=== PATIENT | female | born 1955 | race African-American/Black ===

== ENCOUNTER 2019-06-22 21:10 | Inpatient (IN) ==
[2019-06-22] MEDS ORDERED: DUONEB (A & A) INH ONE (21:35)
[2019-06-22 21:59] LABS: BASO# 0.04 X1000 (0.0-0.2); BASO% 0.7 % (0.0-0.8); HEMOGLOBIN 12.6 g/dL (12.0-16.0); LYMPH# 2.79 X1000 (1.2-3.4); LYMPH% 48.8 % (20.5-51.1); MCH 28.7 PG (27-31); MCHC 32.3 g/dL (33-37); MCV 88.8 FL (81-99); MONO# 0.29 X1000 (0.11-0.59); MONO% 5.1 % (1.7-9.3); MPV 11.2 FL (7.4-10.4); NEUT% 45.4 % (42.2-75.2); PLT 209 X1000 (130-400); RBC 4.39 XMIL (4.2-5.4); WBC 5.72 X1000 (4.8-10.8)
[2019-06-22 21:59] LABS: BE 1.5 mmoll (-3.0-3.0); BLOOD TYPE ARTERIAL; HCO3-(ACT) 25.8 mmoll (20.0-26.0); METHB 1.4 % (0.0-1.5); O2(CT) 17.6 mL/dL (15.0-23.0); PCO2(98.6) 34 mmHg (35-45); PO2(98.6) 51 mmHg (60-100); SAMPLE BLOOD; THB 14.3 g/dL (11.5-17.4); pH(98.6) 7.47 (7.35-7.45)
[2019-06-22 22:05] LABS: INR 0.97; PROTIME 13.4 Seconds (11.0-16.0)
[2019-06-22 22:09] LABS: AGAP 14; ALBUMIN 3.8 g/dL (3.5-5.0); ALKALINE PHOSPHATASE 85 U/L (32-104); BUN 9 mg/dL (8-22); CALCIUM 8.7 mg/dL (8.8-10.2); CHLORIDE 104 mmol/L (98-107); COSMO 277; CREATININE 0.7 mg/dL (0.5-0.9); ESTIMATED GFR > 60; GLUCOSE 114 mg/dL (70-104); GOT 33 U/L (10-30); GPT 20 U/L (10-36); POTASSIUM 3.2 mmol/L (3.5-5.1); SODIUM 139 mmol/L (136-145); TCO2 21 mmol/L (25-35); TOTAL PROTEIN 7.5 g/dL (6.3-8.3)
[2019-06-22 22:15] LABS: ALLEN TEST YES; MODALITY ROOM AIR; O2HB 87.5 % (95.0-99.0)
[2019-06-22] MEDS ORDERED: NORCO-5 PO ONE (22:29)
[2019-06-22] MEDS ORDERED: KLOR-CON PO ONE (23:15)
--- NOTE | 2019-06-22 23:18 | EKG Report ---
Test Performed on : 06/22/2019 9:28:29 PM Test Reason : sob Blood Pressure : / mmHG Vent. Rate : 096 BPM Atrial Rate : 096 BPM P-R Int : 152 ms QRS Dur : 092 ms QT Int : 402 ms P-R-T Axes : 062 084 048 degrees QTc Int : 507 ms Normal sinus rhythm. Nonspecific ST abnormality Abnormal ECG When compared with ECG of 08-DEC-2017 15:57, QT has lengthened Unconfirmed Result
[2019-06-22 23:21] LABS: INFLUENZA A NEGATIVE (NEGATIVE); INFLUENZA B NEGATIVE (NEGATIVE)
[2019-06-22] MEDS ORDERED: ROCEPHIN 1 GM in NS 50 ML IV ONE (23:35)
[2019-06-23 00:04] LABS: URINE SOURCE CLEAN CATCH
[2019-06-23] MEDS ORDERED: ZOFRAN IV PRN (00:05)
[2019-06-23 00:08] LABS: BILIRUBIN URINE NEGATIVE (NEGATIVE); BLOOD URINE NEGATIVE (NEGATIVE); COLOR YELLOW; GLUCOSE URINE NEGATIVE (NEGATIVE); KETONE URINE NEGATIVE (NEGATIVE); LEUKOCYTES URINE NEGATIVE (NEGATIVE); NITRITE URINE NEGATIVE (NEGATIVE); PH URINE 5.5; PROTEIN URINE TRACE mg/dL (NEGATIVE); SP GRAVITY URINE 1.013; TURBIDITY URINE CLEAR (CLEAR); UROBILINOGEN URINE NORMAL (NORMAL)
[2019-06-23 00:10] LABS: UR EPITHELIAL CELLS <10 /HPF (<10); URINE BACTERIA NEGATIVE /HPF; URINE RBC <10 /HPF (<10); URINE WBC <10 /HPF (<10)
[2019-06-23] MEDS: NS 1,000 ML IV ONE ×2 (02:34→03:37)
[2019-06-23] MEDS: TYLENOL PO PRN ×3 (03:52→22:14)
[2019-06-23] MEDS: DUONEB (A & A) INH SCH ×6 (04:10→23:31)
--- NOTE | 2019-06-23 07:32 | Diag Imaging Result Doc PS360 ---
EXAM: CHEST-PORTABLE - 06/22/2019 HISTORY: SOB TECHNIQUE: Portable chest COMPARISON: 06/20/2019 FINDINGS: Heart size is normal. There is mild prominence of infrahilar markings on the right. There is artifact from EKG leads over the right midlung. The left lung appears clear. No pleural effusion or pneumothorax identified. IMPRESSION: Mild prominence of right infrahilar markings. Electronically signed by Cas Mack 06/23/2019 7:29 AM
--- NOTE | 2019-06-23 08:18 | Diag Imaging Result Doc PS360 ---
CT THORAX W/CONTRAST - 06/23/2019 INDICATION: Midlung Density rec f/u per xray COMPARISON: Previous chest x-rays FINDINGS: There is no adenopathy. Heart and great vessels are normal. Small gallstone in the gallbladder. No gallbladder distention or inflammation. Upper abdominal images are normal. There is some trace multifocal infiltrate throughout all lobes of the right lung concerning for early bronchopneumonia. No pneumothorax or pleural effusion. There are moderate degenerative changes of the spine. No acute or suspicious bony lesion. IMPRESSION: Multilobar bronchopneumonia in the right lung. This exam was performed using automated exposure control, adjustment of mA or kV according to patient size, and/or use of iterative reconstruction technique Electronically signed by Chase Montero 06/23/2019 8:15 AM
[2019-06-23] MEDS: ROBITUSSIN-AC PO PRN ×2 (12:28→20:37)
--- NOTE | 2019-06-23 14:24 | HISTORY AND PHYSICAL ---
PRIMARY CARE PHYSICIAN: Dr. Robe Roland. CHIEF COMPLAINT: Shortness of breath and wheezing. HISTORY OF PRESENT ILLNESS: This is a 64-year-old female with a history of hypertension, who presented to the emergency room complaining of about 5 to 6 days of shortness of breath with a productive cough and increased work of breathing. She was found to have multilobar bronchopneumonia on the right. Blood cultures were obtained. She was given Rocephin in the emergency room, and she is being admitted for further evaluation and treatment. PAST MEDICAL HISTORY: Hypertension. PAST SURGICAL HISTORY: Total knee replacement on the left. SOCIAL HISTORY: She smokes a pack a day. She has occasional alcohol use. Denies any illicit drug use. ALLERGIES: Aspirin and Naprosyn that cause nausea and vomiting. HOME MEDICATIONS: ProAir inhaler, Prinivil, simvastatin. REVIEW OF SYSTEMS: Discussed with the patient, with pertinent positives stated in the HPI. She denied any syncope or dizziness, any chest pain, palpitations, fevers or chills, any night sweats, recent weight loss or weight gain, any nausea, vomiting, diarrhea, constipation, black or bloody vomitus or stools, any hematuria, dysuria, frequency, urgency. PHYSICAL EXAMINATION: GENERAL: This is a 64-year-old female who is sitting in the bed in no distress. VITAL SIGNS: Blood pressure is 118/71, with a heart rate of 86, respirations are 16, temperature is 98.7 degrees, with O2 saturations that are 92% to 96% on 2 L nasal cannula. EYES: Pupils are equal, round, reactive to light. EOMs are intact. Sclerae anicteric. HENT: Head is normocephalic, atraumatic. Mucous membranes are moist. NECK: Supple with trachea midline. CARDIOVASCULAR: Regular rate and rhythm. S1 and S2 are appreciated. She has no lower extremity edema. Calves are nontender bilaterally, with peripheral pulses palpable x4 extremities. No murmur is noted. PULMONARY: Breath sounds with expiratory wheezes scattered throughout. Chest rises and falls symmetric with respiration. Chest wall is nontender to palpation. GASTROINTESTINAL: Abdomen is soft, nontender, nondistended with bowel sounds in all 4 quadrants. GENITOURINARY: No CVA or suprapubic tenderness. NEUROLOGIC: She is alert and oriented x3. SKIN: Warm and dry. IMAGING AND LABORATORY DATA: WBC is 5.7, with hemoglobin 12.6, hematocrit 39, platelets of 209,000. INR 0.97. Sodium is 139, potassium 3.2, BUN 9, creatinine 0.7, with a glucose of 114. Lactate is 1.7. Urinalysis is essentially negative. Influenza A and B are negative. ABGs show pH of 7.47, with pCO2 of 34, PO2 of 51, and bicarb of 25.8. This is on room air. Chest x-ray reveals mild prominence of right infrahilar markings. CT of the chest with contrast revealed multilobar bronchopneumonia in the right lung. EKG: Sinus rhythm at a rate of 96. ASSESSMENT: 1. Right bronchopneumonia. 2. Hypertension. 3. Hypokalemia. 4. Acute hypoxemic respiratory failure. PLAN: The patient has been admitted to the medical/surgical floor. She is receiving supplemental oxygen. Will continue per oxygen protocol. Continue bronchodilators, and will add steroids with incentive spirometer every 4 hours, with order for the patient to be up in the chair at least 3 times a day with meals and p.r.n. Will identify her home medications, and continue these as appropriate. For DVT prophylaxis, will use Lovenox, and GI prophylaxis with Prilosec. Repeat a CBC, CMP, and magnesium in the morning. Plan was discussed with Dr. Charles. Further treatments pending hospital course. Dictated by KAYLA Cook for Jacques Charles MD cc: KAYLA Cook MD
[2019-06-23] MEDS: ZITHROMAX PO SCH (14:53)
[2019-06-23] MEDS: LOVENOX SUBQ SCH (14:53)
[2019-06-23] MEDS: SOLU-MEDROL IV SCH ×2 (14:54→22:09)
--- NOTE | 2019-06-23 20:00 | HISTORY AND PHYSICAL ---
ADDENDUM: Patient seen and examined by myself. Full note dictated and discussed with nurse practitioner. Patient presented to the hospital with a 6-day history of chest pain, shortness of breath. He has a chronic history of smoking a pack a day. We are going to admit to the hospital, place on Rocephin, nebulized treatments, oxygen and will follow. cc: Jacques Charles MD
--- NOTE | 2019-06-23 20:19 | HISTORY AND PHYSICAL ---
ADDENDUM: Patient seen and examined by myself. Full note dictated and discussed with nurse practitioner. Patient presented to the hospital with increased cough, congestion, shortness of breath, increased work of breathing. She was diagnosed with right bronchial pneumonia. We are going to admit her to the hospital. IV antibiotics, oxygen, breathing treatments, and will follow. cc: Jacques Charles MD
[2019-06-23] MEDS: ZOCOR PO SCH (20:27)
[2019-06-23] MEDS: ROCEPHIN 1 GM in NS 50 ML IV SCH (22:09)
[2019-06-24] MEDS: DUONEB (A & A) INH SCH ×7 (04:37→23:00)
[2019-06-24] MEDS: SOLU-MEDROL IV SCH ×3 (06:04→21:38)
[2019-06-24 06:47] LABS: HEMATOCRIT 39.4 % (37.0-47.0); HEMOGLOBIN 12.4 g/dL (12.0-16.0); MCH 28.1 PG (27-31); MCHC 31.5 g/dL (33-37); MCV 89.3 FL (81-99); MPV 11.9 FL (7.4-10.4); RBC 4.41 XMIL (4.2-5.4); RDW 15.3 % (11.5-14.5); WBC 4.42 X1000 (4.8-10.8)
[2019-06-24 07:43] LABS: AGAP 18; ALBUMIN 3.7 g/dL (3.5-5.0); ALKALINE PHOSPHATASE 83 U/L (32-104); BUN 9 mg/dL (8-22); CALCIUM 9.3 mg/dL (8.8-10.2); CHLORIDE 104 mmol/L (98-107); COSMO 287; CREATININE 0.6 mg/dL (0.5-0.9); ESTIMATED GFR > 60; GLUCOSE 187 mg/dL (70-104); GOT 23 U/L (10-30); GPT 17 U/L (10-36); POTASSIUM 3.6 mmol/L (3.5-5.1); SODIUM 142 mmol/L (136-145); TCO2 19 mmol/L (25-35); TOTAL PROTEIN 8.2 g/dL (6.3-8.3)
[2019-06-24] MEDS: ZITHROMAX PO SCH (08:20)
[2019-06-24] MEDS: PRINIVIL PO SCH (08:21)
[2019-06-24] MEDS: ROBITUSSIN-AC PO PRN ×3 (08:31→21:46)
--- NOTE | 2019-06-24 10:33 | PROGRESS NOTE ---
DATE: 06/24/2019 SUBJECTIVE: Patient's daughter notes that she is feeling a little bit better. She is breathing better. Patient actually was able to get up and get in the shower today. PHYSICAL EXAMINATION: Vital Signs: Temperature 97.7, pulse 95, respiratory rate 18, BP 142/69. General: Patient is awake, pleasant. She is in minimal respiratory distress. HEENT: Normocephalic. Neck: Supple. Cardiovascular: Regular rate. Chest: Decreased but equal. Positive rhonchi. No current wheezing. Abdomen: Soft, nondistended. Extremities: Moves all extremities. ASSESSMENT: 1. Right bronchopneumonia. 2. Hypertension. 3. Hypokalemia. 4. Acute respiratory hypoxic failure. PLAN: We are going to continue the patient in the hospital. Continue antibiotics, breathing treatments. We will attempt to wean steroids and oxygen, hopefully home over the next few days. cc: Jacques Charles MD
[2019-06-24] MEDS: LOVENOX SUBQ SCH (14:17)
[2019-06-24] MEDS: TYLENOL PO PRN ×2 (14:43→20:24)
[2019-06-24] MEDS: ZOCOR PO SCH (20:24)
[2019-06-24] MEDS: ROCEPHIN 1 GM in NS 50 ML IV SCH (22:11)
[2019-06-25] MEDS: ROBITUSSIN-AC PO PRN ×2 (02:01→20:35)
[2019-06-25] MEDS: DUONEB (A & A) INH SCH ×6 (03:13→23:38)
[2019-06-25] MEDS: TYLENOL PO PRN (03:18)
[2019-06-25] MEDS: SOLU-MEDROL IV SCH ×4 (06:06→21:36)
[2019-06-25] MEDS: ZITHROMAX PO SCH (09:15)
[2019-06-25] MEDS: PRINIVIL PO SCH (09:15)
[2019-06-25] MEDS: NORCO-5 PO PRN ×3 (10:24→20:35)
[2019-06-25] MEDS ORDERED: SOLU-MEDROL IV SCH (14:00)
[2019-06-25] MEDS: LOVENOX SUBQ SCH (16:12)
[2019-06-25] MEDS: ZOCOR PO SCH (20:35)
[2019-06-25] MEDS: NICODERM PATCH TD PRN (20:36)
[2019-06-25] MEDS: ROCEPHIN 1 GM in NS 50 ML IV SCH (22:28)
[2019-06-25] MEDS ORDERED: PERICOLACE PO ONE (22:33)
--- NOTE | 2019-06-26 00:25 | PROGRESS NOTE ---
DATE: 06/25/2019 SUBJECTIVE: Patient notes that she is feeling a lot better. She is still having some cough, congestion, but overall symptoms have improved. PHYSICAL EXAMINATION: Vital Signs: Temperature 98 degrees, pulse 92, respiratory rate 18, BP 129/67. General: Patient is pleasant. She is in minimal respiratory distress lying in the bed. HEENT: Normocephalic. Neck: Supple. Cardiovascular: Regular rate. Chest: Clear. Abdomen: Soft. Extremities: Moves all extremities. ASSESSMENT: 1. Right bronchopneumonia. 2. Acute hypoxic respiratory failure with wheezing. 3. Hypertension. 4. Hypokalemia. PLAN: Overall, patient has improved. We will continue breathing treatments, oxygen, wean her steroids, continue antibiotics. Hopefully home in 1 [*] cc: Jacques Charles MD
[2019-06-26] MEDS: DUONEB (A & A) INH SCH ×6 (03:34→23:09)
[2019-06-26] MEDS: PRINIVIL PO SCH (10:20)
[2019-06-26] MEDS: PERICOLACE PO SCH (10:20)
[2019-06-26] MEDS: SOLU-MEDROL IV SCH (10:20)
[2019-06-26] MEDS: ZITHROMAX PO SCH (10:20)
[2019-06-26] MEDS: NORCO-5 PO PRN ×2 (10:20→17:12)
[2019-06-26] MEDS: LACTULOSE PO SCH ×2 (12:34→20:29)
[2019-06-26] MEDS: TYLENOL PO PRN ×2 (13:02→19:46)
--- NOTE | 2019-06-26 14:07 | Diag Imaging Result Doc PS360 ---
EXAM: CHEST-2 VIEWS 06/26/2019 HISTORY: hypoxia TECHNIQUE: PA and lateral chest COMMENT: There is minimal opacity in the inferolateral right upper lobe which was not clearly present on 06/22/2019. Otherwise are has been no appreciable change. IMPRESSION: Minimal right upper lobe pneumonia. Electronically signed by Travis Spaulding 06/26/2019 2:05 PM
[2019-06-26] MEDS: NICODERM PATCH TD PRN (19:46)
[2019-06-26] MEDS: DOXYCYCLINE PO SCH ×2 (19:46→20:29)
[2019-06-26] MEDS: ZOCOR PO SCH ×2 (19:46→20:29)
--- NOTE | 2019-06-26 20:37 | PROGRESS NOTE ---
DATE: 06/26/2019 SUBJECTIVE: Patient is very worried about her oxygen levels. She is concerned that it drops from 98% to 93% when she attempts to get up and walk. She has frequently been increasing her oxygen on her own. She is very concerned about going home. She lives at home alone. PHYSICAL EXAMINATION: Vital Signs: Temperature 97.4 degrees, pulse 94, respiratory 20, BP 156/89. General: Patient is awake. She is in no respiratory distress. HEENT: Normocephalic. Neck: Supple. Cardiovascular: Regular rate. Chest: Decreased but equal. Abdomen: Soft, nondistended. Extremities: Moves all extremities. ASSESSMENT: 1. Right bronchopneumonia. Her chest x-ray may be a little bit worse. 2. Hypertension. 3. Hypoxic respiratory failure. At this point, I do not believe that she still needs oxygen, although it is quite difficult as she is frequently elevating her oxygen levels on her own. Also, when we attempt to check her oxygen level, she does appear to be breath-holding as she feels as though she needs oxygen at home. PLAN: We will continue in the hospital. Continue Solu-Medrol and antibiotics. We will stop her azithromycin, change to doxycycline. Hopefully home over the next 1 or 2 days. cc: Jacques Charles MD
[2019-06-26] MEDS: ROCEPHIN 1 GM in NS 50 ML IV SCH (23:00)
[2019-06-27] MEDS: NORCO-5 PO PRN (02:59)
[2019-06-27] MEDS: DUONEB (A & A) INH SCH ×2 (03:07→07:43)
[2019-06-27 05:15] VITALS: BP 176/97
[2019-06-27] MEDS ORDERED: PRINIVIL PO SCH (09:00)
[2019-06-27] MEDS: TYLENOL PO PRN (09:29)
[2019-06-27] MEDS: DOXYCYCLINE PO SCH (09:30)
[2019-06-27] MEDS: SOLU-MEDROL IV SCH (10:45)
[2019-06-27] MEDS: PERICOLACE PO SCH (10:45)
[2019-06-27] MEDS: LACTULOSE PO SCH (10:45)
--- NOTE | 2019-06-28 09:12 | DISCHARGE SUMMARY ---
ADMISSION DATE: 06/23/2019 DISCHARGE DATE: 06/27/2019 ADMISSION DIAGNOSES: 1. Right bronchopneumonia. 2. Hypertension. 3. Hypokalemia. 4. Acute hypoxemic respiratory failure. DISCHARGE DIAGNOSES: 1. Right bronchopneumonia. 2. Hypertension. 3. Hypoxemic respiratory failure. CONSULTATIONS: None. SURGERIES AND PROCEDURES: None. HOSPITAL COURSE: Ms. Suzanne Velazco is a 64-year-old female with a history of hypertension who presented to [facility] I believe on the , admitted on the . Had 5 or 6 days with complaints of shortness of breath, increased productive cough, with work of breathing. Imaging showed right bronchopneumonia. She was started on Rocephin and she required oxygen. She started on steroids as well. Pulmonary toilet, incentive spirometer. Her potassium was a little low. That was replaced. Her hypertension remained stable and was deemed appropriate for discharge home today. DISCHARGE VITAL SIGNS: Temperature 97.7 degrees, heart rate 103, respiratory rate 20, blood pressure 176/97, O2 saturation 98% and 95% on room air. DISCHARGE LAB DATA: White blood cells 4000, hemoglobin 12, hematocrit 39, platelet count 223,000. Sodium 142, potassium 3.6, BUN 9, creatinine 0.6, glucose 187, calcium 9.3, magnesium 2.0. Bilirubin 0.20, AST 23, ALT 17, albumin 3.7, lactate 1.7 and then down to 0.8. Flu was negative. Micro negative on the blood cultures. PERTINENT IMAGING: On the , chest x-ray, mild prominence of right infrahilar markings. Chest CT on the , multilobar bronchopneumonia in the right lung. Chest x-ray on the , minimal right upper lobe pneumonia. EKG on the , sinus rhythm, rate 96, QTc was 507. DISCHARGE MEDICATIONS: 1. Simvastatin 20 mg p.o. nightly. 2. Lisinopril 20 mg p.o. daily. 3. Albuterol 2 puffs inhaled every 4 to 6 hours p.r.n. 4. Doxycycline p.o. twice a day for 5 days. 5. Medrol Dosepak. 6. [place] 5 one tablet p.o. every 8 hours p.r.n. for pain. 7. Omeprazole 40 mg p.o. daily. 8. Omnicef 300 mg p.o. twice daily for 5 days. DISCHARGE ACTIVITY: As tolerated. DISCHARGE DIET: Heart healthy. DISCHARGE INSTRUCTIONS: If your condition changes, contact physician and/or return to the emergency department. Changes may include, but are not limited to shortness of breath, increased fatigue, excessive bleeding, unexplained weight loss or gain, unmanageable pain, signs or symptoms of infection. Please take all antibiotics as prescribed. DISCHARGE PHYSICIAN FOLLOWUP: Dr. Roland. DISCHARGE DISPOSITION: Home. Dictated by KAYLA Long for Jacques Charles MD cc: KAYLA Long MD
--- NOTE | 2019-06-29 03:53 | DISCHARGE SUMMARY ---
ADMISSION DATE: 06/23/2019 DISCHARGE DATE: 06/27/2019 ADDENDUM: Patient seen and examined by myself. Full note dictated and discussed with nurse practitioner. Patient was admitted to the hospital with right bronchopneumonia and acute hypoxic respiratory failure. She has hypertension as well as hyperkalemia that has resolved. Thankfully, she had an uneventful hospital course. She was placed on antibiotics and oxygen breathing. Symptoms continued to improve. On discharge, she is totally off of oxygen. She is ambulating without any difficulty. Therefore, she will be discharged home. She will continue antibiotics for a total of 7 day course. She will follow up outpatient with primary care of her choice. cc: Jacques Charles MD
== END 2019-06-27 10:45 | disposition home or self-care (01) | DRG 193 ==
LOC: P.ED 21:10 → P.MEDSURG 06-23 00:42
PROVIDERS: ATTEND Family Medicine